=== PATIENT | male | born 1950 | race Two or more races ===

== ENCOUNTER 2019-06-30 15:44 | Inpatient (IN) | payer OTHER ==
--- NOTE | 2019-06-30 15:58 | PDOC ---
Rapid Medical Evaluation Time Seen by Provider: 06/30/19 15:57 Medical Evaluation: Allergies Allergy/AdvReac Type Severity Reaction Status Date / Time No Known Allergies Allergy Verified 06/30/19 15:54 06/30/19 15:57 I have performed a brief in-person evaluation of this patient. The patient presents with a chief complaint of: hx of HTN, IDDM, GERD. c/o abd pain x 3 hours, denies N/V/D, last BM today and was normal PCP Dr. Cordon Pertinent physical exam findings: mild TTP to RLQ I have ordered the following: labs, urine The patient will proceed to the ED for further evaluation. Discharge Disposition - Diagnosis Abdominal pain - Referrals - Patient Instructions - Post Discharge Activity
[2019-06-30 15:59] VITALS: BMI 29.3
[2019-06-30 16:55] LABS: BASO % 0.3 % (0-2.0); EOS % 3.2 % (0-4.5); HEMATOCRIT 45.9 % (35.4-49); HEMOGLOBIN 14.8 GM/dL (11.7-16.9); LYMPH % 36.7 % (8-40); MCH 27.1 pg (25.7-33.7); MCHC 32.3 g/dl (32.0-35.9); MEAN CELL VOLUME 83.8 fl (80-96); MEAN PLT VOLUME 9.9 fl (7.5-11.1); MONO % 12.1 % (3.8-10.2); NEUT % 47.7 % (42.8-82.8); RBC 5.48 M/mm3 (4.00-5.60); RDW 15.9 % (11.9-15.9); WHITE BLOOD COUNT 7.8 K/mm3 (4.0-10.0)
[2019-06-30 17:19] LABS: ALBUMIN 3.8 g/dl (3.4-5.0); BILIRUBIN,TOTAL 0.5 mg/dL (0.2-1); CALCIUM 9.2 mg/dL (8.5-10.1); CREATININE 0.8 mg/dL (0.55-1.3)
[2019-06-30 17:32] LABS: PLATELET COUNT 156 K/MM3 (134-434); PLATELET ESTIMATE ADEQUATE
--- NOTE | 2019-06-30 18:04 | PDOC ---
History of Present Illness - General History Source: Patient Exam Limitations: No Limitations - History of Present Illness Initial Comments: 68 year old male with PMH HTN, NIDDM, diptheria (3 months old; in [place]) presented to ED for bilateral flank pain x5 hours. Pt reported he was sitting when he began to feel this pain. He reported it has been getting progressively worse in intensity, prompting him to come to the ED. He reported the pain is constant, crampy, radiating across his upper abdomen, no alleviating or aggravating factors. He reported after the pain developed he then felt pain with urination and felt his urine was darker. He denied fever, chills, nausea, vomiting, diarrhea, chest pain, shortness of breath, numbness, tingling. ROS General: denied fever, chills, generalized weakness. HEENT: denied sore throat, rhinorrhea, ear pain. Cardiovascular: denied chest pain, palpitations, syncope, diaphoresis. Respiratory: denied shortness of breath, cough, sputum production, hemoptysis. Gastrointestinal: admitted to abdominal pain. denied nausea, vomiting, diarrhea , constipation, blood in stool. Genitourinary: admitted to dysuria, flank pain. denied increased urinary frequency, hematuria, urinary incontinence. Back: denied back pain. Musculoskeletal: denied joint pain, muscle pain, joint swelling. Neurological: denied headache, dizziness, numbness, tingling, weakness. Integumentary: denied rash, laceration, abrasion. Hematologic/Lymphatic: denied bruising or bleeding. PE Constitutional: Well-nourished, Well-developed, appearing stated age. HEENT: head is normocephalic, atraumatic. EOMI. PERRLA. Neck: supple. Full ROM. Cardiovascular: regular heart rhythm. Normal S1 and S2. no murmurs. no pericardial friction rub. Respiratory: clear to auscultation bilaterally. no crackles, rhonchi or wheezing. no stridor. Gastrointestinal: soft, protuberant. tenderness to RUQ, negative murphys. normal bowel sounds. no rebound, guarding, or masses. no rash. Back: positive right sided CVA tenderness. negative left sided CVA tenderness. no rash. Extremities: peripheral pulses intact and equal. no lower extremity edema noted. Neurological: CN 2-12 grossly intact. moves all four extremities. Psych: awake, alert, oriented x3. follows commands. answers questions appropriately. <Nasima De Dios - Last Filed: 06/30/19 22:39> <Saleem Heller - Last Filed: 06/30/19 23:25> - General Chief Complaint: Pain Stated Complaint: R/O UTI/ ABD PAIN Time Seen by Provider: 06/30/19 15:57 Past History - Past Medical History Asthma: Yes CVA: No COPD: No Diabetes: Yes (NIDDM) GI Disorders: Yes (GERD) HTN: Yes - Psycho Social/Smoking Cessation Hx Smoking History: Never smoked Hx Alcohol Use: No Drug/Substance Use Hx: No <Nasima De Dios - Last Filed: 06/30/19 22:39> <Saleem Heller - Last Filed: 06/30/19 23:25> - Past Medical History Allergies/Adverse Reactions: Allergies Allergy/AdvReac Type Severity Reaction Status Date / Time No Known Allergies Allergy Verified 06/30/19 15:54 *Physical Exam - Vital Signs Last Vital Signs Temp Pulse Resp BP Pulse Ox 97.9 F 69 130/101 H 98 06/30/19 15:54 06/30/19 15:54 06/30/19 15:54 06/30/19 15:54 <Nasima De Dios - Last Filed: 06/30/19 22:39> - Vital Signs Last Vital Signs Temp Pulse Resp BP Pulse Ox 97.9 F 88 137/94 98 06/30/19 15:54 06/30/19 21:45 06/30/19 21:45 06/30/19 15:54 <Saleem Heller - Last Filed: 06/30/19 23:25> ED Treatment Course - LABORATORY CBC & Chemistry Diagram: 06/30/19 16:05 06/30/19 16:05 - ADDITIONAL ORDERS Additional order review: Laboratory Results 06/30/19 16:05 Sodium 137 Potassium 4.0 Chloride 102 Carbon Dioxide 29 Anion Gap 6 L BUN 13.0 Creatinine 0.8 Est GFR (CKD-EPI)AfAm 107.13 Est GFR (CKD-EPI)NonAf 92.44 Random Glucose 97 Calcium 9.2 Total Bilirubin 0.5 AST 27 ALT 49 Alkaline Phosphatase 72 Total Protein 8.0 Albumin 3.8 Lipase 114 06/30/19 16:05 RBC 5.48 MCV 83.8 MCHC 32.3 RDW 15.9 MPV 9.9 Neutrophils % 47.7 Lymphocytes % 36.7 Monocytes % 12.1 H Eosinophils % 3.2 Basophils % 0.3 <Nasima De Dios - Last Filed: 06/30/19 22:39> - LABORATORY CBC & Chemistry Diagram: 06/30/19 16:05 06/30/19 16:05 - ADDITIONAL ORDERS Additional order review: Laboratory Results 06/30/19 06/30/19 18:05 16:05 Sodium 137 Potassium 4.0 Chloride 102 Carbon Dioxide 29 Anion Gap 6 L BUN 13.0 Creatinine 0.8 Est GFR (CKD-EPI)AfAm 107.13 Est GFR (CKD-EPI)NonAf 92.44 Random Glucose 97 Calcium 9.2 Total Bilirubin 0.5 AST 27 ALT 49 Alkaline Phosphatase 72 Total Protein 8.0 Albumin 3.8 Lipase 114 Urine Color [place] Urine Appearance Clear Urine pH 5.5 Ur Specific [place] 1.014 Urine Protein 2+ H Urine Glucose (UA) Negative Urine Ketones Negative Urine Blood 3+ H Urine Nitrite Negative Urine Bilirubin Negative Urine Urobilinogen 0.2 Ur Leukocyte Esterase Trace Urine WBC (Auto) 24 Urine RBC (Auto) 132 Urine Casts (Auto) 4 U Epithel Cells (Auto) 6.8 Urine Bacteria (Auto) 3.9 Urine Yeast (Auto) Few 06/30/19 16:05 RBC 5.48 MCV 83.8 MCHC 32.3 RDW 15.9 MPV 9.9 Neutrophils % 47.7 Lymphocytes % 36.7 Monocytes % 12.1 H Eosinophils % 3.2 Basophils % 0.3 - Medications Given in the ED: ED Medications Discontinued Medications Generic Name Dose Route Start Last Admin Trade Name Freq PRN Reason Stop Dose Admin Sodium Chloride 1,000 mls @ 1,000 mls/hr 06/30/19 18:20 06/30/19 20:33 Normal Saline - IV 06/30/19 19:19 1,000 mls/hr ASDIR STA Administration Ketorolac Tromethamine 30 mg 06/30/19 22:30 06/30/19 23:09 Toradol Injection - IVPUSH 06/30/19 22:31 30 mg ONCE ONE Administration Labetalol HCl 20 mg 06/30/19 18:56 06/30/19 19:53 Normodyne Injection - IVPUSH 06/30/19 18:57 20 mg ONCE ONE Administration Morphine Sulfate 2 mg 06/30/19 18:20 06/30/19 20:32 Morphine Injection - IVPUSH 06/30/19 18:21 2 mg ONCE ONE Administration <Arron,Boris - Last Filed: 06/30/19 23:25> Medical Decision Making - Medical Decision Making 68 year old male with above PMH presented to ED for bilateral flank pain associated with dysuria and dark urine. Initial Vital Signs Temp Pulse BP Pulse Ox 97.9 F 69 130/101 H 98 06/30/19 15:54 06/30/19 15:54 06/30/19 15:54 06/30/19 15:54 Afebrile. No tachycardia. Hypertensive. No hypoxia on room air. EKG performed at 2036: rate 70, regular rhythm, normal axis, 1st degree AV block , CT 264, no acute ST changes. Laboratory Last Values WBC 7.8 K/mm3 (4.0-10.0) 06/30/19 16:05 RBC 5.48 M/mm3 (4.00-5.60) 06/30/19 16:05 Hgb 14.8 GM/dL (11.7-16.9) 06/30/19 16:05 Hct 45.9 % (35.4-49) 06/30/19 16:05 MCV 83.8 fl (80-96) 06/30/19 16:05 MCH 27.1 pg (25.7-33.7) 06/30/19 16:05 MCHC 32.3 g/dl (32.0-35.9) 06/30/19 16:05 RDW 15.9 % (11.9-15.9) 06/30/19 16:05 Plt Count 156 K/MM3 (134-434) 06/30/19 16:05 MPV 9.9 fl (7.5-11.1) 06/30/19 16:05 Absolute Neuts (auto) 3.7 K/mm3 (1.5-8.0) 06/30/19 16:05 Neutrophils % 47.7 % (42.8-82.8) 06/30/19 16:05 Lymphocytes % 36.7 % (8-40) 06/30/19 16:05 Monocytes % 12.1 % (3.8-10.2) H 06/30/19 16:05 Eosinophils % 3.2 % (0-4.5) 06/30/19 16:05 Basophils % 0.3 % (0-2.0) 06/30/19 16:05 Nucleated RBC % 0 % (0-0) 06/30/19 16:05 Platelet Estimate Adequate 06/30/19 16:05 Platelet Comment Rare giant plts 06/30/19 16:05 Sodium 137 mmol/L (136-145) 06/30/19 16:05 Potassium 4.0 mmol/L (3.5-5.1) 06/30/19 16:05 Chloride 102 mmol/L (98-107) 06/30/19 16:05 Carbon Dioxide 29 mmol/L (21-32) 06/30/19 16:05 Anion Gap 6 MMOL/L (8-16) L 06/30/19 16:05 BUN 13.0 mg/dL (7-18) 06/30/19 16:05 Creatinine 0.8 mg/dL (0.55-1.3) 06/30/19 16:05 Est GFR (CKD-EPI)AfAm 107.13 06/30/19 16:05 Est GFR (CKD-EPI)NonAf 92.44 06/30/19 16:05 Random Glucose 97 mg/dL (74-106) 06/30/19 16:05 Calcium 9.2 mg/dL (8.5-10.1) 06/30/19 16:05 Total Bilirubin 0.5 mg/dL (0.2-1) 06/30/19 16:05 AST 27 U/L (15-37) 06/30/19 16:05 ALT 49 U/L (13-61) 06/30/19 16:05 Alkaline Phosphatase 72 U/L (45-117) 06/30/19 16:05 Total Protein 8.0 g/dl (6.4-8.2) 06/30/19 16:05 Albumin 3.8 g/dl (3.4-5.0) 06/30/19 16:05 Lipase 114 U/L (73-393) 06/30/19 16:05 No leukocytosis. No anemia. Elevated monocytes. No electrolyte abnormalities. No ARIELA. No transaminitis. Lipase wnl. Medications ordered: Labetolol 20 mg IV once, morphine 2 mg IV once, normal saline bolus 1000 cc once Concern for aortic dissection vs AAA, will lower blood pressure then transport to CT for imaging. 06/30/19 19:38 Vital Signs Temperature 97.9 F 06/30/19 15:54 Pulse Rate 79 06/30/19 19:33 Respiratory Rate Blood Pressure 171/86 H 06/30/19 19:33 O2 Sat by Pulse Oximetry (%) 98 06/30/19 15:54 Increasing systolic HTN Labetalol not given yet 06/30/19 22:31 Urine Test Results Urine Color [place] 06/30/19 18:05 Urine Appearance Clear 06/30/19 18:05 Urine pH 5.5 (5.0-8.0) 06/30/19 18:05 Ur Specific [place] 1.014 (1.010-1.035) 06/30/19 18:05 Urine Protein 2+ (NEGATIVE) H 06/30/19 18:05 Urine Glucose (UA) Negative (NEGATIVE) 06/30/19 18:05 Urine Ketones Negative (NEGATIVE) 06/30/19 18:05 Urine Blood 3+ (NEGATIVE) H 06/30/19 18:05 Urine Nitrite Negative (NEGATIVE) 06/30/19 18:05 Urine Bilirubin Negative (NEGATIVE) 06/30/19 18:05 Ur Leukocyte Esterase Trace (NEGATIVE) 06/30/19 18:05 CT report: Name: [facility] DEPARTMENT OF RADIOLOGY Phys: Nasima De Dios RESIDENT : 1950 Age: 68 Sex: M [facility] Acct: [id number] Loc: [address] Exam Date: 06/30/19 Status: [place] [id number] Unit Number: [id number] EXAM#: TYPE/EXAM: RESULT: [id number] CT/CTA CHEST ABD PEL W/WO CONT CT angiography of the chest, abdomen and pelvis (without and with contrast) Clinical information: bilateral flank pain; history of hypertension; evaluate for dissection, aneurysm, nephrolithiasis Multiplanar imaging of the chest, abdomen and pelvis was performed before and following the intravenous administration of nonionic contrast. Enteric contrast was not administered. No prior CT studies are available at this facility for direct comparison. A 3 mm calculus is seen within the mid aspect of the right ureter with resultant mild hydronephrosis and mild right perirenal soft tissue stranding is noted secondary to acute obstruction. No other definite urinary tract calculus is visualized. Multiple bilateral renal cortical cyst are seen most prominent measuring 16.7 cm. The thoracoabdominal aorta demonstrates no CT evidence of aneurysm, dissection, intramural hematoma or penetrating atherosclerotic ulceration. At least moderate atherosclerotic coronary artery calcifications are visualized. Small bilateral upper lobe opacities are seen probably representing scarring. Several enlarged left inguinal lymph nodes are seen with a 1.3 cm maximum short axis diameter. 1.2 cm left adrenal adenoma. Diffuse hepatic steatosis. The remaining visualized soft tissue structures demonstrate no significant CT pathology. Impression: 3 mm right mid ureteral calculus with resultant mild hydronephrosis. Multiple large bilateral renal cortical cysts. No CT evidence of aortic aneurysm or dissection. At least moderate atherosclerotic coronary calcifications. Nonspecific left inguinal lymphadenopathy. Diffuse hepatic steatosis. 1.2 cm left adrenal adenoma. Biochemical evaluation is suggested. Mild bilateral upper lobe opacities are seen probably representing scarring. Correlate with 3 month follow-up CT. Reported By: Francisco J Lombardi MD 06/30/19 2227 Pt has nephrolithiasis resulting in obstruction. Left adrenal adenoma noted. Left inguinal adenopathy. Fatty liver. Bilateral renal cortical cysts. Medications ordered: Ceftriaxone 1g IV once Labs ordered: Blood cultures x2 Pt to be admitted for obstructed nephrolithiasis. Pending admission. <Nasima De Dios - Last Filed: 06/30/19 22:39> Discharge - Discharge Information Problems reviewed: Yes - Admission Yes <Nasima De Dios - Last Filed: 06/30/19 22:39> - Discharge Information Problems reviewed: Yes - Admission Yes <Saleem Heller - Last Filed: 06/30/19 23:25> - Discharge Information Clinical Impression/Diagnosis: Nephrolithiasis, Hepatic steatosis, Renal cyst UTI (urinary tract infection) Qualifiers: Urinary tract infection type: site unspecified Hematuria presence: with hematuria Qualified Code(s): N39.0 - Urinary tract infection, site not specified ; R31.9 - Hematuria, unspecified Adrenal adenoma Qualifiers: Laterality: unspecified laterality Qualified Code(s): D35.00 - Benign neoplasm of unspecified adrenal gland Condition: Fair - Follow up/Referral Referrals: Joe Cordon MD [Primary Care Provider] - - Patient Discharge Instructions - Post Discharge Activity
[2019-06-30] MEDS ORDERED: morphine CARPU-JECT 4 MG/1 ML DISP.SYRIN IVPUSH ONE (18:20)
[2019-06-30] MEDS ORDERED: SODIUM CHLORIDE 1,000 ML IV STA (18:20)
[2019-06-30] MEDS ORDERED: LABETALOL HCL 5 MG/1 ML (100MG/20 ML VIAL) IVPUSH ONE (18:56)
[2019-06-30] MEDS ORDERED: LABETALOL HCL 5 MG/1 ML (200MG/40ML VIAL) IVPB ONE (19:07)
--- NOTE | 2019-06-30 19:40 | PDOC ---
Documentation entered by Judith Mi SCRIBE, acting as scribe for Saleem Heller MD. Saleem Heller MD: This documentation has been prepared by the Shmuel savage Xhesika, SCRIBE, under my direction and personally reviewed by me in its entirety. I confirm that the documentation accurately reflects all work, treatment, procedures, and medical decision making performed by me. Attending Attestation - Resident Resident Name: Nasima De Dios - ED Attending Attestation I have performed the following: I have examined & evaluated the patient, The case was reviewed & discussed with the resident, I agree w/resident's findings & plan, Exceptions are as noted - HPI HPI: 06/30/19 18:28 The patient is a 68 year old male with a significant PMH of HTN, IDDM, GERD, and diptheria who presents to the emergency department for 5hrs of bilateral flank pain. The patient states his symptoms started while he was sitting down. Pt describes the pain as constant, crampy in nature, radiating to his upper abdomen associated with painful urination and dark color urine. The patient denies chest pain, shortness of breath, headache and dizziness. Denies fever, chills, cough, nausea, vomiting, diarrhea and constipation. Allergies: NKDA PCP: Dr. Cordon - Physicial Exam PE: 06/30/19 19:36 Patient is awake and alert, obese, in mild distress, hypertensive. Normocephalic and atraumatic PERRLA, EOMI No JVD CTA RRR Abdomen is soft, tympanitic, nontender, positive right CVA tenderness to palpation, no organomegaly, no hernias - Medical Decision Making 06/30/19 19:38 Patient is a 68-year-old male who presents with atraumatic bilateral flank pain radiating anteriorly. Patient is noted to be hypertensive on initial evaluation. Differential diagnosis includes nephrolithiasis versus pyelonephritis versus urinary retention versus AAA versus aortic dissection. Will treat elevated blood pressure with parenteral labetalol; will obtain CTA of chest and abdomen to rule out dissection. Will reassess.
[2019-06-30] MEDS ORDERED: MORPHINE SULFATE 2 MG/ML VIAL ONE (20:31)
[2019-06-30 21:01] LABS: EPI CELLS 6.8 /HPF (0-5/HPF); HYALINE CASTS 4 /lpf (0-8); PH,URINE 5.5 (5.0-8.0); URINE APPEARANCE CLEAR; URINE BACTERIA 3.9 /hpf (NEGATIVE); URINE BILIRUBIN NEGATIVE (NEGATIVE); URINE COLOR ORANGE; URINE GLUCOSE (UA) NEGATIVE (NEGATIVE); URINE KETONE NEGATIVE (NEGATIVE); URINE LEUK ESTERASE TRACE (NEGATIVE); URINE NITRITE NEGATIVE (NEGATIVE); URINE PROTEIN 2+ (NEGATIVE); URINE RBC 132 /hpf (0-4); URINE UROBILINOGEN 0.2 mg/dL (0.2-1.0); URINE WBC 24 /hpf (0-5)
[2019-06-30 21:31] LABS: YEAST FEW (NEGATIVE)
[2019-06-30] MEDS ORDERED: KETOROLAC TROMETHAMINE 30 MG/1 ML VIAL IVPUSH ONE (22:30)
[2019-06-30] MEDS ORDERED: TAMSULOSIN HCL 0.4 MG CAP PO ONE (22:30)
[2019-06-30] MEDS ORDERED: CEFTRIAXONE 1 GM in DEXTROSE 5%-WATER - 100 ML IVPB ONE (22:38)
[2019-06-30] MEDS ORDERED: KETOROLAC TROMETHAMINE 30 MG/1 ML VIAL ONE (23:04)
--- NOTE | 2019-06-30 23:25 | PN ---
Teaching Attending Note Name of Resident: Karen Martins ATTENDING PHYSICIAN STATEMENT I saw and evaluated the patient. I reviewed the resident's note and discussed the case with the resident. I agree with the resident's findings and plan as documented. SUBJECTIVE: 68-year-old male with history of hypertension, diabetes mellitus, diphtheria at 4 years old while in [place], presents to ED for bilateral flank pain which started on 06/30/2019 in the evening. Patient sat down when he began to feel sharp pain in his flanks bilaterally. Pain was constant with no clear alleviating or aggravating factors. Denied any dysuria. OBJECTIVE: Last Vital Signs Temp Pulse Resp BP Pulse Ox 97.9 F 88 137/94 98 06/30/19 15:54 06/30/19 21:45 06/30/19 21:45 06/30/19 15:54 Physical exam showed a man in no acute distress, appears comfortable. No CVA tenderness appreciated, soft abdomen. Lungs clear to auscultation bilaterally, normal cardiovascular exam. No pedal edema bilaterally Abnormal Lab Results 06/30/19 06/30/19 06/30/19 16:05 16:05 18:05 Monocytes % 12.1 H Anion Gap 6 L Urine Protein 2+ H Urine Blood 3+ H CT/CTA of chest, abdomen, pelvis with and without contrast reviewed1.2 cm left adrenal adenoma, diffuse hepatic steatosis, 3 mm right mid ureteral calculus with resultant mild hydronephrosis. Multiple large bilateral renal cortical cysts. No CT evidence of aortic aneurysm or dissection, nonspecific left inguinal lymphadenopathy, diffuse hepatic steatosis. ASSESSMENT AND PLAN: #3 mm right mid ureter calculus with resultant mild hydronephrosissymptomatic as patient had significant pain, now is resolved. Patient denied overt dysuria, fevers, chills so doubt legitimate urinary tract infection at this time. Urine culture IV fluid hydration Morphine IV for pain control Urology evaluation PT, PTT, type and screen N.p.o. for possible urological intervention # 1.2 cm left adrenal adenomawould follow-up in endocrinology clinic #Hepatic steatosiswould follow-up in hepatology clinic #Diabetes mellitus A1c NovoLog sliding scale #DVT prophylaxisSCDs
[2019-06-30] MEDS ORDERED: SODIUM CHLORIDE 1,000 ML IV SCH (23:45)
[2019-06-30] MEDS ORDERED: TAMSULOSIN HCL 0.4 MG CAP ONE (23:48)
--- NOTE | 2019-06-30 23:49 | HP ---
CHIEF COMPLAINT: Hematuria PCP: Dr. Cordon HISTORY OF PRESENT ILLNESS: 68M PMH HTN, NIDDM, asthma, HLD, who presents today with hematuria and bilateral flank pain. Patient reports that he has had worsening flank pain over the past few days, with the pain reaching 10/10, worst in the right flank today. The pain is nonradiating. He notes no difficulty urinating, with stream not changing, no change in frequency or hesitancy. He had episodes of hematuria prior to arriving in the ED but he reports no hematuria on last episode of urination. Patient denies any dysuria. He has no abdominal pain, and does not note any change in his abdominal size, except the weight he has put on since he has retired. Patient denies any history of polycystic kidneys, and no prior history of renal stones. Patient has appetite but has not eaten all day, and denies any nausea and vomiting. ER course was notable for: (1) CT scan of Abdomen, pelvis, chest was completed: 3 mm right mid ureteral calculus with resultant mild hydronephrosis. Multiple large bilateral renal cortical cysts. No CT evidence of aortic aneurysm or dissection. At least moderate atherosclerotic coronary calcifications. Nonspecific left inguinal lymphadenopathy. Diffuse hepatic steatosis. 1.2 cm left adrenal adenoma. Biochemical evaluation is suggested. Mild bilateral upper lobe opacities are seen probably representing scarring. Correlate with 3 month follow-up CT. (2) Patient was given morphine 2 mg IV, after which he had 2 episodes of NBNB emesis. (3) Patient was given flomax, toradol, and labetolol Recent Travel: None PAST MEDICAL HISTORY: HTN, NIDDM, Asthma, HLD, Diptheria FAMILY MEDICAL HISTORY: Denies PAST SURGICAL HISTORY: Surgery after diptheria when 3 month old in [place] Social History: Smoking:Denies Alcohol: Socially Drugs: Denies Retired [employer] worker. Lives with at home, is able to complete all ADLs without assistance. Allergies No Known Allergies Allergy (Verified 06/30/19 15:54) HOME MEDICATIONS: REVIEW OF SYSTEMS CONSTITUTIONAL: Absent: fever, chills, diaphoresis, generalized weakness, malaise, loss of appetite, weight change HEENT: Absent: rhinorrhea, nasal congestion, throat pain, throat swelling, difficulty swallowing, mouth swelling, ear pain, eye pain, visual changes CARDIOVASCULAR: Absent: chest pain, syncope, palpitations, irregular heart rate, lightheadedness , peripheral edema RESPIRATORY: Absent: cough, shortness of breath, dyspnea with exertion, orthopnea, wheezing, stridor, hemoptysis GASTROINTESTINAL: Absent: abdominal pain, abdominal distension, nausea, vomiting, diarrhea, constipation, melena, hematochezia GENITOURINARY: Present: hematuria, flank pain Absent: dysuria, frequency, urgency, hesitancy, genital pain MUSCULOSKELETAL: Absent: myalgia, arthralgia, joint swelling, back pain, neck pain SKIN: Absent: rash, itching, pallor HEMATOLOGIC/IMMUNOLOGIC: Absent: easy bleeding, easy bruising, lymphadenopathy, frequent infections ENDOCRINE: Absent: unexplained weight gain, unexplained weight loss, heat intolerance, cold intolerance NEUROLOGIC: Absent: headache, focal weakness or paresthesias, dizziness, unsteady gait, seizure, mental status changes, bladder or bowel incontinence PSYCHIATRIC: Absent: anxiety, depression, suicidal or homicidal ideation, hallucinations. PHYSICAL EXAMINATION Vital Signs - 24 hr 06/30/19 06/30/19 06/30/19 15:54 19:33 21:45 Temperature 97.9 F Pulse Rate 69 Pulse Rate [ 79 88 Apical] Blood Pressure 130/101 H Blood Pressure 171/86 H 137/94 [Left Arm] O2 Sat by Pulse 98 Oximetry (%) GENERAL: Awake, alert, and fully oriented, in no acute distress. HEAD: Normal with no signs of trauma. LUNGS: Breath sounds equal, clear to auscultation bilaterally. No wheezes, and no crackles. No accessory muscle use. HEART: Regular rate and rhythm, normal S1 and S2 without murmur, rub or gallop. ABDOMEN: Distended abdomen,non tympanic, normoactive bowel sounds, nontender to palpation. MUSCULOSKELETAL: Normal range of motion at all joints. No bony deformities or tenderness. B/L CVA tenderness. UPPER EXTREMITIES: 2+ pulses, warm, well-perfused. No cyanosis. No clubbing. No peripheral edema. LOWER EXTREMITIES: 2+ pulses, warm, well-perfused. No calf tenderness. No peripheral edema. NEUROLOGICAL: Cranial nerves II-XII intact. Normal speech. PSYCHIATRIC: Cooperative. Good eye contact. Appropriate mood and affect. SKIN: Warm, dry, normal turgor, no rashes or lesions noted, normal capillary refill. Laboratory Results - last 24 hr 06/30/19 06/30/1906/30/20 16:05 16:05 18:05 WBC 7.8 RBC 5.48 Hgb 14.8 Hct 45.9 MCV 83.8 MCH 27.1 MCHC 32.3 RDW 15.9 Plt Count 156 MPV 9.9 Absolute Neuts (auto) 3.7 Neutrophils % 47.7 Lymphocytes % 36.7 Monocytes % 12.1 H Eosinophils % 3.2 Basophils % 0.3 Nucleated RBC % 0 Platelet Estimate Adequate Platelet Comment Rare giant plts Sodium 137 Potassium 4.0 Chloride 102 Carbon Dioxide 29 Anion Gap 6 L BUN 13.0 Creatinine 0.8 Est GFR (CKD-EPI)AfAm 107.13 Est GFR (CKD-EPI)NonAf 92.44 Random Glucose 97 Calcium 9.2 Total Bilirubin 0.5 AST 27 ALT 49 Alkaline Phosphatase 72 Total Protein 8.0 Albumin 3.8 Lipase 114 Urine Color [place] Urine Appearance Clear Urine pH 5.5 Ur Specific [place] 1.014 Urine Protein 2+ H Urine Glucose (UA) Negative Urine Ketones Negative Urine Blood 3+ H Urine Nitrite Negative Urine Bilirubin Negative Urine Urobilinogen 0.2 Ur Leukocyte Esterase Trace Urine WBC (Auto) 24 Urine RBC (Auto) 132 Urine Casts (Auto) 4 U Epithel Cells (Auto) 6.8 Urine Bacteria (Auto) 3.9 Urine Yeast (Auto) Few ASSESSMENT/PLAN: 68M PMH HTN, NIDDM, asthma, HLD, who presents today with hematuria and bilateral flank pain and found to have renal calculus on CT imaging. 1) Mild hydronephrosis 2/2 renal calculus - Patient presents with new onset hematuria, U/A shows 3+ blood - CT imaging show 3 mm right mid ureteral calculus with resultant mild hydronephrosis and soft tissue stranding. - Denies symptoms of obstruction, still able to urinate and maintains same stream - Tylenolol IV Q6H PRN - Morphine 2 mg IV for pain - Zofran 4 mg IV for nausea - Urology consulted, Dr. Saravia, appreciate recs - Patient kept NPO, PT, PTT, Type& Screen ordered - NS @100 ml/hr 2) UTI -Patient denies dysuria, change in frequency, urgency - Urine bacteria 3, WBC 24 - Given 1 gram ceftriaxone in ED, will continue - F/U Urine culture 3) 1.2 cm left adrenal adenoma - Follow up with endocrine as outpatient 4) CT imaging shows upper lobe opacities - likely scarring. repeat CT in 3 months - Denies any TB historically. - F/U Quantiferon. 5) Hepatic steatosis - AST/ALT, Alk Phos WNL - Denies hx of hepatitis. - F/U Hepatitis panel - Likely DAVILA given hx of occasional alcohol use and no hx of hepatitis. - F/U with outpatient GI/Hepatology. 6) Hx of HTN -Continuing metoprolol and amlodipine - Holding ARB if patient goes to OR - Given labetolol 40 mg in ED due to HTN- SBP 171. Continue to monitor 7) Hx of DMII - Holding home metformin and stigaliptin - BGM ACHS - ISS 8) Hx of HLD - Continue home statin dose 9) Hx of Asthma - Duonebs PRN F: NS @ 100 ml/hr E: Monitor CMP N: NPO DVT: SCDs Dispo: Admitted to med/surg Visit type - Emergency Visit Emergency Visit: Yes ED Registration Date: 06/30/19 Care time: The patient presented to the Emergency Department on the above date and was hospitalized for further evaluation of their emergent condition. - New Patient This patient is new to me today: Yes Date on this admission: 06/30/19 - Critical Care Critical Care patient: No ATTENDING PHYSICIAN STATEMENT I saw and evaluated the patient. I reviewed the resident's note and discussed the case with the resident. I agree with the resident's findings and plan as documented. SUBJECTIVE: OBJECTIVE: ASSESSMENT AND PLAN:
[2019-06-30] MEDS ORDERED: MORPHINE SULFATE 2 MG/ML VIAL IVPUSH PRN (23:51)
[2019-06-30] MEDS ORDERED: ACETAMINOPHEN 1000 MG/100 ML VIAL (NON FORMULARY) IVPB PRN (23:51)
[2019-07-01] MEDS ORDERED: ONDANSETRON 4 MG/2 ML VIAL IVPUSH PRN ×2 (00:35→16:32)
[2019-07-01] MEDS ORDERED: CEFTRIAXONE 1 GM/50 ML BAG ONE (02:57)
[2019-07-01] MEDS ORDERED: PATIENT'S OWN MEDICATION (NON-FORMULARY) (Ranitidine Hcl [Ranitidine Hcl] 300 MG) PO PRN (03:43)
[2019-07-01] MEDS: INSULIN SLIDING SCALE (NOVOLOG) 1 VIAL SQ SCH ×3 (06:44→22:26)
[2019-07-01 07:29] LABS: BASO % 0.2 % (0-2.0); EOS % 0.5 % (0-4.5); HEMATOCRIT 39.9 % (35.4-49); HEMOGLOBIN 13.2 GM/dL (11.7-16.9); LYMPH % 17.1 % (8-40); MEAN CELL VOLUME 81.8 fl (80-96); MEAN PLT VOLUME 9.8 fl (7.5-11.1); MONO % 14.1 % (3.8-10.2); NEUT % 68.1 % (42.8-82.8); PLATELET COUNT 139 K/MM3 (134-434); RBC 4.87 M/mm3 (4.00-5.60); RDW 15.7 % (11.9-15.9); WHITE BLOOD COUNT 8.8 K/mm3 (4.0-10.0)
[2019-07-01 07:39] LABS: INR 1.12 (0.83-1.09); PROTHROMBIN TIME (PATIENT) 13.2 SEC (9.7-13.0)
[2019-07-01 07:42] LABS: ACTIVATED PTT 31.9 SECONDS (25.2-36.5)
[2019-07-01] MEDS ORDERED: TAMSULOSIN HCL 0.4 MG CAP PO SCH (08:30)
[2019-07-01 08:38] LABS: ALBUMIN 3.3 g/dl (3.4-5.0); BILIRUBIN,TOTAL 0.4 mg/dL (0.2-1); BLOOD UREA NITROGEN 17.5 mg/dL (7-18); CALCIUM 8.1 mg/dL (8.5-10.1); CREATININE 1.4 mg/dL (0.55-1.3); MAGNESIUM 1.8 mg/dL (1.8-2.4); PHOSPHOROUS 3.2 mg/dL (2.5-4.9); POTASSIUM 3.8 mmol/L (3.5-5.1); TOT PROT 6.7 g/dl (6.4-8.2)
[2019-07-01] MEDS ORDERED: metoPROLOL SUCCINATE 25 MG TAB.SR.24H (FP) PO SCH (10:00)
[2019-07-01] MEDS ORDERED: amLODIPine BESYLATE 5 MG TABLET (FP) PO SCH (10:00)
[2019-07-01] MEDS ORDERED: FAMOTIDINE 20 MG TABLET PO SCH (10:00)
[2019-07-01] MEDS ORDERED: FLU VACCINE QUAD 60 MCG/0.5 ML (MDV 19-20) IM ONE (10:00)
--- NOTE | 2019-07-01 12:01 | CON.GU ---
Consult Consult Specialty:: Referred by:: Drake Reason for Consultation:: R ureteral calculus - History of Present Illness Chief Complaint: R flank pain History of Present Illness: 68M PMH HTN, NIDDM, asthma, HLD, who presents today with hematuria and bilateral flank pain. Patient reports that he has had worsening flank pain over the past few days, with the pain reaching 10/10, worst in the right flank today. The pain is nonradiating. He notes no difficulty urinating, with stream not changing, no change in frequency or hesitancy. He had episodes of hematuria prior to arriving in the ED but he reports no hematuria on last episode of urination. Patient denies any dysuria. He has no abdominal pain, and does not note any change in his abdominal size, except the weight he has put on since he has retired. Patient denies any history of polycystic kidneys, and no prior history of renal stones. Patient has appetite but has not eaten all day, and denies any nausea and vomiting. cons req. ER course was notable for: (1) CT scan of Abdomen, pelvis, chest was completed: 3 mm right mid ureteral calculus with resultant mild hydronephrosis. Multiple large bilateral renal cortical cysts. No CT evidence of aortic aneurysm or dissection. At least moderate atherosclerotic coronary calcifications. Nonspecific left inguinal lymphadenopathy. Diffuse hepatic steatosis. 1.2 cm left adrenal adenoma. Biochemical evaluation is suggested. Mild bilateral upper lobe opacities are seen probably representing scarring. Correlate with 3 month follow-up CT. (2) Patient was given morphine 2 mg IV, after which he had 2 episodes of NBNB emesis. (3) Patient was given flomax, toradol, and labetolol - History Source History Provided By: Patient, Medical Record Limitations to Obtaining History: No Limitations - Past Medical History Cardio/Vascular: Yes: HTN, Hyperlipdemia Pulmonary: Yes: Asthma Endocrine: Yes: Diabetes Mellitus - Alcohol/Substance Use Hx Alcohol Use: No - Smoking History Smoking history: Never smoked Home Medications - Allergies Allergies/Adverse Reactions: Allergies Allergy/AdvReac Type Severity Reaction Status Date / Time No Known Allergies Allergy Verified 06/30/19 15:54 - Home Medications Home Medications: Ambulatory Orders Amlodipine Besylate 5 mg PO DAILY 06/30/19 Famotidine 20 mg PO DAILY 06/30/19 Fluticasone/Salmeterol [Advair 250-50 Diskus] 1 puff IH Q4H PRN 06/30/19 Irbesartan 150 mg PO DAILY 06/30/19 Metoprolol Succinate 25 mg PO DAILY 06/30/19 Pravastatin Sodium [Pravachol (Nf)] 20 mg PO HS 06/30/19 Ranitidine HCl 300 mg PO DAILY PRN 06/30/19 Sitagliptin Phosphate [Januvia] 100 mg PO DAILY 06/30/19 metFORMIN HCL [Metformin HCl] 500 mg PO BID 06/30/19 Review of Systems - Review of Systems Genitourinary: reports: Flank Pain Physical Exam- Vital Signs: Vital Signs Temperature 98.3 F 07/01/19 09:06 Pulse Rate 79 07/01/19 09:06 Respiratory Rate 18 07/01/19 09:06 Blood Pressure 115/70 07/01/19 09:06 O2 Sat by Pulse Oximetry (%) 96 07/01/19 04:43 Gastrointestinal: Yes: Normal Bowel Sounds, Soft Renal/: Yes: CVA Tenderness - Right Kidneys: Yes: Flank Pain Left, FLank Pain Right Pelvis: Yes: WNL Testicles: Yes: WNL, Descended Scrotum: Yes: WNL Penis: Yes: WNL Musculoskeletal: Yes: WNL Extremities: Yes: WNL Labs: CBC, BMP 07/01/19 06:18 07/01/19 06:18 Imaging - Results Cat Scan: Report Reviewed Problem List - Problems (1) Ureteral calculus Assessment/Plan: tamsulosin, strain urine, cysto R JJ stent insertion, RULL JJ chng after uti resolved Code(s): N20.1 - CALCULUS OF URETER (2) Hydronephrosis concurrent with and due to calculi of kidney and ureter Code(s): N13.2 - HYDRONEPHROSIS WITH RENAL AND URETERAL CALCULOUS OBSTRUCTION (3) Renal cyst Code(s): N28.1 - CYST OF KIDNEY, ACQUIRED (4) UTI (urinary tract infection) Assessment/Plan: U cx, iv abxs Code(s): N39.0 - URINARY TRACT INFECTION, SITE NOT SPECIFIED Qualifiers: Urinary tract infection type: site unspecified Hematuria presence: with hematuria Qualified Code(s): N39.0 - Urinary tract infection, site not specified; R31.9 - Hematuria, unspecified
--- NOTE | 2019-07-01 14:06 | PN ---
Physical Exam: SUBJECTIVE: Patient seen and examined. C/o epiagstric pain and rt cva tenderness. Afebrile. OBJECTIVE: Vital Signs Period Temp Pulse Resp BP Sys/Abrams Pulse Ox Last 24 Hr 97.9 F-98.8 F 69-88 16-18 115-171/70-101 95-98 GENERAL: The patient is awake, alert, and fully oriented, in no acute distress. NECK: supple. LUNGS: Breath sounds equal, clear to auscultation bilaterally, no wheezes, no crackles, no accessory muscle use. HEART: Regular rate and rhythm, S1, S2 without murmur, rub or gallop. ABDOMEN: Soft, ttp midepgiastrium, Rt CVA tenderness noted. EXTREMITIES: 2+ pulses, warm, well-perfused, no edema. Laboratory Results - last 24 hr 06/30/19 06/30/19 06/30/19 16:05 16:05 18:05 WBC 7.8 RBC 5.48 Hgb 14.8 Hct 45.9 MCV 83.8 MCH 27.1 MCHC 32.3 RDW 15.9 Plt Count 156 MPV 9.9 Absolute Neuts (auto) 3.7 Neutrophils % 47.7 Lymphocytes % 36.7 Monocytes % 12.1 H Eosinophils % 3.2 Basophils % 0.3 Nucleated RBC % 0 Platelet Estimate Adequate Platelet Comment Rare giant plts PT with INR INR PTT (Actin FS) Sodium 137 Potassium 4.0 Chloride 102 Carbon Dioxide 29 Anion Gap 6 L BUN 13.0 Creatinine 0.8 Est GFR (CKD-EPI)AfAm 107.13 Est GFR (CKD-EPI)NonAf 92.44 POC Glucometer Random Glucose 97 Hemoglobin A1c % Calcium 9.2 Phosphorus Magnesium Total Bilirubin 0.5 AST 27 ALT 49 Alkaline Phosphatase 72 Total Protein 8.0 Albumin 3.8 Lipase 114 Vitamin B12 Urine Color [place] Urine Appearance Clear Urine pH 5.5 Ur Specific [place] 1.014 Urine Protein 2+ H Urine Glucose (UA) Negative Urine Ketones Negative Urine Blood 3+ H Urine Nitrite Negative Urine Bilirubin Negative Urine Urobilinogen 0.2 Ur Leukocyte Esterase Trace Urine WBC (Auto) 24 Urine RBC (Auto) 132 Urine Casts (Auto) 4 U Epithel Cells (Auto) 6.8 Urine Bacteria (Auto) 3.9 Urine Yeast (Auto) Few Hep C Ab Diagnostic Hepatitis C RNA HCV RNA PCR log copy editor/ml HCV RNA (PCR) IUs/ml HCV RNA PCR w/Genot Rflx Liver Fibrosis Inter Blood Type Antibody Screen 07/01/19 07/01/19 07/01/19 06:18 06:18 06:18 WBC 8.8 RBC 4.87 Hgb 13.2 Hct 39.9 MCV 81.8 MCH 27.0 MCHC 33.0 RDW 15.7 Plt Count 139 MPV 9.8 Absolute Neuts (auto) 6.0 Neutrophils % 68.1 D Lymphocytes % 17.1 D Monocytes % 14.1 H Eosinophils % 0.5 D Basophils % 0.2 Nucleated RBC % 0 Platelet Estimate Platelet Comment PT with INR INR PTT (Actin FS) Sodium Potassium Chloride Carbon Dioxide Anion Gap BUN Creatinine Est GFR (CKD-EPI)AfAm Est GFR (CKD-EPI)NonAf POC Glucometer Random Glucose Hemoglobin A1c % 7.2 H Calcium Phosphorus Magnesium Total Bilirubin AST ALT Alkaline Phosphatase Total Protein Albumin Lipase Vitamin B12 Urine Color Urine Appearance Urine pH Ur Specific [place] Urine Protein Urine Glucose (UA) Urine Ketones Urine Blood Urine Nitrite Urine Bilirubin Urine Urobilinogen Ur Leukocyte Esterase Urine WBC (Auto) Urine RBC (Auto) Urine Casts (Auto) U Epithel Cells (Auto) Urine Bacteria (Auto) Urine Yeast (Auto) Hep C Ab Diagnostic Hepatitis C RNA HCV RNA PCR log copy editor/ml HCV RNA (PCR) IUs/ml HCV RNA PCR w/Genot Rflx Liver Fibrosis [facility] Blood Type O POSITIVE Antibody Screen Negative 07/01/19 07/01/19 07/01/19 06:18 06:18 06:19 WBC RBC Hgb Hct MCV MCH MCHC RDW Plt Count MPV Absolute Neuts (auto) Neutrophils % Lymphocytes % Monocytes % Eosinophils % Basophils % Nucleated RBC % Platelet Estimate Platelet Comment PT with INR 13.20 H INR 1.12 H PTT (Actin FS) 31.9 Sodium 140 Potassium 3.8 Chloride 106 Carbon Dioxide 24 Anion Gap 10 BUN 17.5 Creatinine 1.4 H Est GFR (CKD-EPI)AfAm 59.83 Est GFR (CKD-EPI)NonAf 51.62 POC Glucometer 174 Random Glucose 179 H Hemoglobin A1c % Calcium 8.1 L Phosphorus 3.2 Magnesium 1.8 Total Bilirubin 0.4 AST 24 ALT 42 Alkaline Phosphatase 58 Total Protein 6.7 Albumin 3.3 L Lipase Vitamin B12 659 Urine Color Urine Appearance Urine pH Ur Specific [place] Urine Protein Urine Glucose (UA) Urine Ketones Urine Blood Urine Nitrite Urine Bilirubin Urine Urobilinogen Ur Leukocyte Esterase Urine WBC (Auto) Urine RBC (Auto) Urine Casts (Auto) U Epithel Cells (Auto) Urine Bacteria (Auto) Urine Yeast (Auto) Hep C Ab Diagnostic Hepatitis C RNA HCV RNA PCR log copy editor/ml HCV RNA (PCR) IUs/ml HCV RNA PCR w/Genot Rflx Liver Fibrosis Interp Blood Type Antibody Screen 07/01/19 07/01/19 08:50 11:20 WBC RBC Hgb Hct MCV MCH MCHC RDW Plt Count MPV Absolute Neuts (auto) Neutrophils % Lymphocytes % Monocytes % Eosinophils % Basophils % Nucleated RBC % Platelet Estimate Platelet Comment PT with INR INR PTT (Actin FS) Sodium Potassium Chloride Carbon Dioxide Anion Gap BUN Creatinine Est GFR (CKD-EPI)AfAm Est GFR (CKD-EPI)NonAf POC Glucometer 124 Random Glucose Hemoglobin A1c % Calcium Phosphorus Magnesium Total Bilirubin AST ALT Alkaline Phosphatase Total Protein Albumin Lipase Vitamin B12 Urine Color Urine Appearance Urine pH Ur Specific [place] Urine Protein Urine Glucose (UA) Urine Ketones Urine Blood Urine Nitrite Urine Bilirubin Urine Urobilinogen Ur Leukocyte Esterase Urine WBC (Auto) Urine RBC (Auto) Urine Casts (Auto) U Epithel Cells (Auto) Urine Bacteria (Auto) Urine Yeast (Auto) Hep C Ab Diagnostic Cancelled Hepatitis C RNA Cancelled HCV RNA PCR log copy editor/ml Cancelled HCV RNA (PCR) IUs/ml Cancelled HCV RNA PCR w/Genot Rflx Cancelled Liver Fibrosis Interp Cancelled Blood Type Antibody Screen Active Medications Generic Name Dose Route Start Last Admin Trade Name Freq PRN Reason Stop Dose Admin Acetaminophen 1,000 mg 06/30/19 23:51 Ofirmev Injection - IVPB 07/01/19 23:51 Q6H PRN PAIN LEVEL 4 - 6 Amlodipine Besylate 5 mg 07/01/19 10:00 07/01/19 10:04 Norvasc - PO 5 mg DAILY LELAND Administration Atorvastatin Calcium 10 mg 07/01/19 22:00 Lipitor - PO HS LELAND Famotidine 20 mg 07/01/19 10:00 07/01/19 10:04 Pepcid - PO 20 mg DAILY LELAND Administration Sodium Chloride 1,000 mls @ 100 mls/hr 06/30/19 23:45 07/01/19 00:00 Normal Saline - IV 100 mls/hr ASDIR LELAND Administration Insulin Aspart 1 vial 07/01/19 07:00 07/01/19 11:31 Novolog Vial Sliding Scale - SQ Not Given ACHS [facility] Protocol Metoprolol Succinate 25 mg 07/01/19 10:00 07/01/19 10:04 Toprol Xl - PO 25 mg DAILY LELAND Administration Morphine Sulfate 2 mg 06/30/19 23:51 Morphine Sulfate IVPUSH Q6H PRN PAIN LEVEL 7 - 10 Non-Formulary Medication 1 puff 07/01/19 03:43 Fluticasone/Salmeterol [Advair 250-50 Diskus] IH Q4H PRN SHORT OF BREATH/WHEEZING Ondansetron HCl 4 mg 07/01/19 00:35 Zofran Injection IVPUSH Q6H PRN NAUSEA Tamsulosin HCl 0.4 mg 07/01/19 08:30 07/01/19 08:56 Flomax - PO 0.4 mg DAILY@0830 LELAND Administration ASSESSMENT/PLAN: 68M PMH HTN, NIDDM, asthma, HLD, who presents today with hematuria and bilateral flank pain and found to have renal calculus on CT imaging. 1) Mild hydronephrosis 2/2 renal calculus - Patient presents with new onset hematuria, U/A shows 3+ blood - CT imaging show 3 mm right mid ureteral calculus with resultant mild hydronephrosis and soft tissue stranding. - Denies symptoms of obstruction - Tylenol IV Q6H PRN - Morphine 2 mg IV for pain, avoid if making him nauseous - Zofran 4 mg IV for nausea - Urology consulted, Dr. Saravia will do a cysto with Rt JJ stent insertion, with removal of JJ onc UTI resolves. ESWL is contraindicated in Acute UTI. - Patient kept NPO, PT, PTT, Type& Screen ordered - NS @100 ml/hr 2) ? UTI -Patient denies dysuria, change in frequency, urgency - Urine bacteria 3, WBC 24, trace leuk est - Given 1 gram ceftriaxone in ED, will discontinue and monitor given lack of urinary symptoms or wbc, fever. - F/U Urine culture to assess need for abx 3) 1.2 cm left adrenal adenoma - Follow up with endocrine as outpatient 4) CT imaging shows upper lobe opacities - likely scarring. repeat CT in 3 months - Denies any TB historically. - F/U Quantiferon. 5) NAFLD - AST/ALT, Alk Phos WNL - Denies hx of hepatitis. - Likely DAVILA given hx of occasional alcohol use and no hx of hepatitis. - RUQ US- showing fatty infiltration of liver - F/U with outpatient GI/Hepatology. - Vitamin E potential benefit for NAFLD 6) Hx of HTN -Continuing metoprolol and amlodipine - Holding ARB if patient goes to OR - Given labetolol 40 mg in ED due to HTN- SBP 171. Continue to monitor 7) Hx of DMII - Holding home metformin and stigaliptin - BGM ACHS - ISS 8) Hx of HLD - Continue home statin dose 9) Hx of Asthma - Duonebs PRN F: NS @ 100 ml/hr E: Monitor CMP N: NPO DVT: SCDs Dispo: Admitted to med/surg Visit type - Emergency Visit Emergency Visit: Yes ED Registration Date: 06/30/19 Care time: The patient presented to the Emergency Department on the above date and was hospitalized for further evaluation of their emergent condition. - New Patient This patient is new to me today: Yes Date on this admission: 07/01/19 - Critical Care Critical Care patient: No - Discharge Referral Referred to [facility] No ATTENDING PHYSICIAN STATEMENT I saw and evaluated the patient. I reviewed the resident's note and discussed the case with the resident. I agree with the resident's findings and plan as documented. SUBJECTIVE: OBJECTIVE: ASSESSMENT AND PLAN:
--- NOTE | 2019-07-01 14:14 | EKG ---
Test Reason : Blood Pressure : / mmHG Vent. Rate : 070 BPM Atrial Rate : 070 BPM P-R Int : 264 ms QRS Dur : 096 ms QT Int : 398 ms P-R-T Axes : 058 023 056 degrees QTc Int : 429 ms SINUS RHYTHM WITH 1ST DEGREE A-V BLOCK NONSPECIFIC ST ABNORMALITY ABNORMAL ECG NO PREVIOUS ECGS AVAILABLE Confirmed by EFRAÍN SUAREZ MD ([id number]) on 07/01/2019 2:14:34 PM Referred By: Confirmed By:EFRAÍN SUAREZ MD
--- NOTE | 2019-07-01 15:00 | OP ---
Operative Note - Note: Operative Date: 07/01/19 Pre-Operative Diagnosis: R ureteral calculus, R hydronephrosis, large renal cysts Operation: cystoscopy and R JJ stent insertion Findings: R ureteral calculus, R hydronephrosis, renal cysts Post-Operative Diagnosis: Same as Pre-op Surgeon: Chauncey Saravia Anesthesiologist/[employer] SALESPERSON: Cindy Pretty Anesthesia: General Estimated Blood Loss (mls): 0 Drains & Tubes with Location: 6 fr 24 cm R JJ stent Operative Report Dictated: Yes
[2019-07-01] MEDS ORDERED: PROPOFOL 20 ML ONE ×2 (15:04→15:37)
[2019-07-01] MEDS ORDERED: LIDOCAINE HCL/PF 2% SDV 5ML VIAL ONE (15:04)
[2019-07-01] MEDS ORDERED: MIDAZOLAM HCL 2 MG/2 ML SINGLE DOSE VIAL ONE (15:05)
[2019-07-01] MEDS ORDERED: LACTATED RINGERS SOLUTION 1,000 ML IV SCH ×2 (16:00→16:32)
--- NOTE | 2019-07-01 16:08 | PN ---
Teaching Attending Note Name of Resident: Abram Coppola ATTENDING PHYSICIAN STATEMENT I saw and evaluated the patient. I reviewed the resident's note and discussed the case with the resident. I agree with the resident's findings and plan as documented. Seen and examined; please see resident note for further historical information. I personally verified all fonscea historical information and exam findings. Personally interpreted all imaging and diagnostics and reviewed appropriate consults. I reviewed all labs and vital signs as per resident note and EMR as documented. I agree with the above assessment and plan unless supplemented by myself in the following. Patient being taken to the operating room for treatment of the right ureteral calculus/right hydronephrosis. Likely stenting. Pain is controlled. 10 item review of systems completed and is negative aside from as discussed in the subjective data in my own/the resident documentation. VS, labs, imaging reviewed NAD, AAO, resting comfortably in bed. RRR s1/2 no mgr Normal muscle tone, moves all 5 extremities with normal apparent strength Neck is supple, trachea midline, no marisa LN Lungs CTAB with sym expansion NT ND +BS no marisa organomegaly CN2-12 wnl; no FND NC AT EOMI PERRLA Normal mood, appropriate behavior, euthymic affect No skin breakdown or rashes noted Assessment and plan: Patient presents with right-sided hydronephrosis with ureteral calculus, heading to the OR for procedure. We will continue IV fluids and pain control, monitor his sugars, and disposition will be pending urology recommendations. He has no fever or white count and there is no signs of clinical infection. We will therefore monitor him closely and cover if indicated but withhold antibiotics at this juncture, following up urine culture. Will be with problem list as per resident
--- NOTE | 2019-07-01 16:15 | OP ---
DATE OF OPERATION: 07/01/2019 PREOPERATIVE DIAGNOSES: Right ureteral calculus, right hydronephrosis, urinary tract infection, bilateral renal cysts. POSTOPERATIVE DIAGNOSES: Right ureteral calculus, right hydronephrosis, urinary tract infection, bilateral renal cysts. PROCEDURE: Cystoscopy, right double-J stent insertion. SURGEON: Chauncey Anderson MD CATHETERIZATION LABORATORY TECHNICIAN: None. ANESTHESIA: General via laryngeal mask. ANESTHESIOLOGIST: CAROL Restrepo SPECIMENS: None. CULTURES: None. DRAINS: A 6-Greenlandic, 24-cm, right double-J stent. ESTIMATED BLOOD LOSS: None. COMPLICATIONS: None. DESCRIPTION OF PROCEDURE: Patient brought in the operating room, placed on the operating table in supine position. After the administration of general anesthesia via laryngeal mask, intravenous antibiotics had been administered on the floor. The patient was placed in the dorsal lithotomy position. Genitals and perineum were prepped and draped in usual sterile manner. A 22-Greenlandic cystoscope was inserted into the bladder under direct vision. The anterior urethra was normal. The prostatic urethra was normal. The bladder was entered, and urine was evacuated. A 30-degree telescope was inserted, and cystoscopy was performed. This demonstrated no foreign bodies, tumors, stones, or inflammation. Both ureteral orifices were in their usual location with clear efflux bilaterally. Now, a 0.038 guidewire was now inserted into the right ureteral orifice and advanced to the level of the right renal pelvis under fluoroscopic and direct visual guidance. Dual-lumen catheter was inserted. Retrograde pyelogram was done and demonstrated bifid collecting system, right mid-ureteral calculus, mild right hydronephrosis. The guidewire was left coiled in the renal pelvis. Then, the dual-lumen catheter was removed. Now, a 6-Greenlandic, 24-cm, right double-J stent was inserted over the guidewire under direct visual and fluoroscopic guidance, leaving 1 coil in the renal pelvis and 1 coil in the bladder. The bladder was emptied. Cystoscope removed. He tolerated the procedure well, transferred to recovery in stable condition. He will be followed up to schedule ureteroscopic laser lithotripsy, double-J stent change, and then, he should have an evaluation for his large renal cysts. CHAUNCEY ANDERSON M.D. [id number]
[2019-07-01] MEDS ORDERED: MORPHINE SULFATE 2 MG/ML VIAL IVPUSH PRN (16:32)
[2019-07-01] MEDS ORDERED: SODIUM CHLORIDE 1,000 ML IV SCH (16:32)
[2019-07-01] MEDS ORDERED: ACETAMINOPHEN 1000 MG/100 ML VIAL (NON FORMULARY) IVPB PRN (16:32)
[2019-07-01] MEDS ORDERED: CEFTRIAXONE 1 GM in DEXTROSE 5%-WATER - 50 ML IVPB SCH (20:00)
[2019-07-01] MEDS ORDERED: ATORVASTATIN CA 10 MG TABLET (FP) PO SCH ×2 (22:00)
[2019-07-02] MEDS: INSULIN SLIDING SCALE (NOVOLOG) 1 VIAL SQ SCH ×2 (06:01→12:15)
[2019-07-02] MEDS ORDERED: ONDANSETRON 4 MG TABLET PO PRN (07:03)
[2019-07-02] MEDS ORDERED: TAMSULOSIN HCL 0.4 MG CAP PO SCH (08:30)
[2019-07-02 09:48] LABS: BLOOD UREA NITROGEN 14.3 mg/dL (7-18); CALCIUM 8.7 mg/dL (8.5-10.1); CREATININE 0.9 mg/dL (0.55-1.3); POTASSIUM 3.7 mmol/L (3.5-5.1)
[2019-07-02] MEDS ORDERED: FAMOTIDINE 20 MG TABLET PO SCH (10:00)
[2019-07-02] MEDS ORDERED: metoPROLOL SUCCINATE 25 MG TAB.SR.24H (FP) PO SCH (10:00)
[2019-07-02] MEDS ORDERED: amLODIPine BESYLATE 5 MG TABLET (FP) PO SCH (10:00)
--- NOTE | 2019-07-02 13:50 | DS ---
Physical Exam: SUBJECTIVE: Patient seen and examined. No acute events overnight. Pt denies any pain or other complaints. OBJECTIVE: Vital Signs Period Temp Pulse Resp BP Sys/Abrams Pulse Ox Last 24 Hr 97.9 F-99.9 F 67-85 12-20 102-160/67-81 94-97 PHYSICAL EXAM GENERAL: The patient is awake, alert, and fully oriented, in no acute distress. LUNGS: Breath sounds equal, clear to auscultation bilaterally, no wheezes, no crackles, no accessory muscle use. HEART: Regular rate and rhythm, S1, S2 without murmur, rub or gallop. ABDOMEN: Soft, no longer having tender abdomen, minimal CVA tenderness. EXTREMITIES: 2+ pulses, warm, well-perfused, no edema. LABS Laboratory Results - last 24 hr 07/01/19 07/01/19 07/01/19 06:18 08:50 17:43 Sodium Potassium Chloride Carbon Dioxide Anion Gap BUN Creatinine Est GFR (CKD-EPI)AfAm Est GFR (CKD-EPI)NonAf POC Glucometer 158 Random Glucose Calcium Hep A IgM Ab Confirm Negative Hep Bs Antigen Negative Hep B Core IgM Ab Negative Hep C Ab Diagnostic <0.1 Hepatitis C Ab (EIA) <0.1 07/01/19 07/02/19 07/02/19 22:25 05:42 08:10 Sodium 138 Potassium 3.7 Chloride 103 Carbon Dioxide 29 Anion Gap 6 L BUN 14.3 Creatinine 0.9 Est GFR (CKD-EPI)AfAm 102.07 Est GFR (CKD-EPI)NonAf 88.07 POC Glucometer 213 137 Random Glucose 161 H Calcium 8.7 Hep A IgM Ab Confirm Hep Bs Antigen Hep B Core IgM Ab Hep C Ab Diagnostic Hepatitis C Ab (EIA) 07/02/19 11:24 Sodium Potassium Chloride Carbon Dioxide Anion Gap BUN Creatinine Est GFR (CKD-EPI)AfAm Est GFR (CKD-EPI)NonAf POC Glucometer 196 Random Glucose Calcium Hep A IgM Ab Confirm Hep Bs Antigen Hep B Core IgM Ab Hep C Ab Diagnostic Hepatitis C Ab (EIA) HOSPITAL COURSE: Date of Admission:06/30/19 CT scan of Abdomen, pelvis, chest was completed: 3 mm right mid ureteral calculus with resultant mild hydronephrosis. Multiple large bilateral renal cortical cysts. No CT evidence of aortic aneurysm or dissection. At least moderate atherosclerotic coronary calcifications. Nonspecific left inguinal lymphadenopathy. Diffuse hepatic steatosis. 1.2 cm left adrenal adenoma. Biochemical evaluation is suggested. Mild bilateral upper lobe opacities are seen probably representing scarring. Correlate with 3 month follow-up CT. U/A shows 3+ blood Pt is a 68M PMH HTN, NIDDM, asthma, HLD, who was admitted for hematuria and rt sided CVA tenderness, found to have renal calculus and rt sided hydronephrosis on ultrasound/CT imaging. Pt was seen by Dr. SARAVIA who placed a JJ stent and started pt on flomax to help pass the stone. Pt is expected to follow up with uro to have JJ removed in 1 week. Pt asymptomatic and uro was okay with discharge with close follow up. Pt also found to have b/l renal cysts and will follow up with nephro (Dr. Cline) regarding this. He also has left adrenal adenoma warranting follow up with endocrine as o/p. He will follow up with pulm for his rpt CT in 3 mths for upper lobe opacities. He will follow up with his primary as well. He was told to come back to the ER if he has any worsening of his current symptoms. Date of Discharge: 07/02/19 Minutes to complete discharge: 35 Discharge Summary Problems reviewed: Yes Reason For Visit: URINARY TRACT INFECTION, CALCULUS OF KIDNEY Current Active Problems Adrenal adenoma (Chronic) Hepatic steatosis (Chronic) Renal cyst (Chronic) Condition: Improved - Instructions Diet, Activity, Other Instructions: You were seen in the hospital for complaints of blood in the urine and flank pain. Imaging showed that you had a kidney stone as well as kidney cysts. You were seen by a urologist and had a stent placed in your ureter to allow passage of your kidney stone. During your hospital stay, your symptoms improved. You are now stable for discharge. Medications Please START taking Flomax 0.4mg by mouth once daily for your stone to pass. Follow up with urology to see if you should continue this once your stone passes and if you are feeling dizzy or lightheaded with this medication please stop it and tell your urologist (Dr. Saravia). Please continue taking the rest of your home medications as directed. Follow Up Please follow up with your primary care physician, within 1 week. Please follow up with your urologist, Dr. Saravia, within 1 week. You will need your stent removed in one week. Please follow up with your die try out worker, Dr. Jessica Valdez, within 1 week for evaluation of kidney cysts found on imaging. Less urgent follow ups to mention to your primary care doctor at your next visit : Please follow up with pulmonology (Dr. Ace) for your lung opacity (cloudiness ) for repeat imaging. Please follow up with endocrinology (Dr. polanco) for your adrenal gland that showed a small growth (left adrenal adenoma). If you have worsening hematuria, abdominal pain, fever/chills, nausea/vomiting, or other associated symptoms, please proceed to your nearest emergency room immediately. Referrals: Joe Cordon MD [Primary Care Provider] - Francisco J Ace MD [Staff Physician] - Chauncey Saravia MD [Staff Physician] - 1 Week Jessica Valdez MD [Staff Physician] - 1 Week Dickson Polanco MD [Staff Physician] - 1 Week Disposition: HOME - Home Medications Comprehensive Discharge Medication List: Ambulatory Orders Amlodipine Besylate 5 mg PO DAILY 06/30/19 Famotidine 20 mg PO DAILY 06/30/19 Fluticasone/Salmeterol [Advair 250-50 Diskus] 1 puff IH Q4H PRN 06/30/19 Irbesartan 150 mg PO DAILY 06/30/19 Metoprolol Succinate 25 mg PO DAILY 06/30/19 Pravastatin Sodium [Pravachol -] 20 mg PO HS 06/30/19 Ranitidine HCl 300 mg PO DAILY PRN 06/30/19 Sitagliptin Phosphate [Januvia] 100 mg PO DAILY 06/30/19 metFORMIN HCL [Metformin HCl] 500 mg PO BID 06/30/19 Tamsulosin HCl [Flomax -] 0.4 mg PO DAILY@0830 #30 cap.er.24h 07/02/19 This patient is new to me today: No Emergency Visit: Yes ED Registration Date: 06/30/19 Care time: The patient presented to the Emergency Department on the above date and was hospitalized for further evaluation of their emergent condition. Critical Care patient: No - Discharge Referral Referred to [facility] No ATTENDING PHYSICIAN STATEMENT I saw and evaluated the patient. I reviewed the resident's note and discussed the case with the resident. I agree with the resident's findings and plan as documented. SUBJECTIVE: OBJECTIVE: ASSESSMENT AND PLAN:
[2019-07-02 15:28] VITALS: BP 122/74; PULSE 88; TEMP 99.7
--- NOTE | 2019-07-02 16:05 | PN ---
Teaching Attending Note Name of Resident: Abram Coppola ATTENDING PHYSICIAN STATEMENT I saw and evaluated the patient. I reviewed the resident's note and discussed the case with the resident. I agree with the resident's findings and plan as documented. Seen and examined; please see resident note for further historical information. I personally verified all fonseca historical information and exam findings. Personally interpreted all imaging and diagnostics and reviewed appropriate consults. I reviewed all labs and vital signs as per resident note and EMR as documented. I agree with the above assessment and plan unless supplemented by myself in the following. Residents discussed the case with Dr. Miller the patient is stable to go home for interval urological follow-up. Stent removal next week, no signs of infection. Afebrile overnight; DC order written 2PM 10 item review of systems completed and is negative aside from as discussed in the subjective data in my own/the resident documentation. VS, labs, imaging reviewed NAD, AAO, resting comfortably in bed. RRR s1/2 no mgr Normal muscle tone, moves all 5 extremities with normal apparent strength Neck is supple, trachea midline, no marisa LN Lungs CTAB with sym expansion NT ND +BS no marisa organomegaly CN2-12 wnl; no FND NC AT EOMI PERRLA Normal mood, appropriate behavior, euthymic affect No skin breakdown or rashes noted Laboratory Tests 06/30/19 06/30/19 06/30/19 16:05 16:05 18:05 WBC 7.8 RBC 5.48 Hgb 14.8 Hct 45.9 MCV 83.8 MCH 27.1 MCHC 32.3 RDW 15.9 Plt Count 156 MPV 9.9 Absolute Neuts (auto) 3.7 Neutrophils % 47.7 Lymphocytes % 36.7 Monocytes % 12.1 H Eosinophils % 3.2 Basophils % 0.3 Nucleated RBC % 0 Platelet Estimate Adequate Platelet Comment Rare giant plts PT with INR INR PTT (Actin FS) Sodium 137 Potassium 4.0 Chloride 102 Carbon Dioxide 29 Anion Gap 6 L BUN 13.0 Creatinine 0.8 Est GFR (CKD-EPI)AfAm 107.13 Est GFR (CKD-EPI)NonAf 92.44 POC Glucometer Random Glucose 97 Hemoglobin A1c % Calcium 9.2 Phosphorus Magnesium Total Bilirubin 0.5 AST 27 ALT 49 Alkaline Phosphatase 72 Total Protein 8.0 Albumin 3.8 Lipase 114 Vitamin B12 Urine Color [place] Urine Appearance Clear Urine pH 5.5 Ur Specific [place] 1.014 Urine Protein 2+ H Urine Glucose (UA) Negative Urine Ketones Negative Urine Blood 3+ H Urine Nitrite Negative Urine Bilirubin Negative Urine Urobilinogen 0.2 Ur Leukocyte Esterase Trace Urine WBC (Auto) 24 Urine RBC (Auto) 132 Urine Casts (Auto) 4 U Epithel Cells (Auto) 6.8 Urine Bacteria (Auto) 3.9 Urine Yeast (Auto) Few Hep A IgM Ab Confirm Hep Bs Antigen Hep B Core IgM Ab Hep C Ab Diagnostic Hepatitis C Ab (EIA) Hepatitis C RNA HCV RNA PCR log copy center associate/ml HCV RNA (PCR) IUs/ml HCV RNA PCR w/Genot Rflx Liver Fibrosis Interp Blood Type Antibody Screen 07/01/19 07/01/19 07/01/19 06:18 06:18 06:18 WBC 8.8 RBC 4.87 Hgb 13.2 Hct 39.9 MCV 81.8 MCH 27.0 MCHC 33.0 RDW 15.7 Plt Count 139 MPV 9.8 Absolute Neuts (auto) 6.0 Neutrophils % 68.1 D Lymphocytes % 17.1 D Monocytes % 14.1 H Eosinophils % 0.5 D Basophils % 0.2 Nucleated RBC % 0 Platelet Estimate Platelet Comment PT with INR INR PTT (Actin FS) Sodium Potassium Chloride Carbon Dioxide Anion Gap BUN Creatinine Est GFR (CKD-EPI)AfAm Est GFR (CKD-EPI)NonAf POC Glucometer Random Glucose Hemoglobin A1c % 7.2 H Calcium Phosphorus Magnesium Total Bilirubin AST ALT Alkaline Phosphatase Total Protein Albumin Lipase Vitamin B12 Urine Color Urine Appearance Urine pH Ur Specific [place] Urine Protein Urine Glucose (UA) Urine Ketones Urine Blood Urine Nitrite Urine Bilirubin Urine Urobilinogen Ur Leukocyte Esterase Urine WBC (Auto) Urine RBC (Auto) Urine Casts (Auto) U Epithel Cells (Auto) Urine Bacteria (Auto) Urine Yeast (Auto) Hep A IgM Ab Confirm Hep Bs Antigen Hep B Core IgM Ab Hep C Ab Diagnostic Hepatitis C Ab (EIA) Hepatitis C RNA HCV RNA PCR log copy center associate/ml HCV RNA (PCR) IUs/ml HCV RNA PCR w/Genot Rflx Liver Fibrosis Interp Blood Type O POSITIVE Antibody Screen Negative 07/01/19 07/01/19 07/01/19 06:18 06:18 06:18 WBC RBC Hgb Hct MCV MCH MCHC RDW Plt Count MPV Absolute Neuts (auto) Neutrophils % Lymphocytes % Monocytes % Eosinophils % Basophils % Nucleated RBC % Platelet Estimate Platelet Comment PT with INR 13.20 H INR 1.12 H PTT (Actin FS) 31.9 Sodium 140 Potassium 3.8 Chloride 106 Carbon Dioxide 24 Anion Gap 10 BUN 17.5 Creatinine 1.4 H Est GFR (CKD-EPI)AfAm 59.83 Est GFR (CKD-EPI)NonAf 51.62 POC Glucometer Random Glucose 179 H Hemoglobin A1c % Calcium 8.1 L Phosphorus 3.2 Magnesium 1.8 Total Bilirubin 0.4 AST 24 ALT 42 Alkaline Phosphatase 58 Total Protein 6.7 Albumin 3.3 L Lipase Vitamin B12 659 Urine Color Urine Appearance Urine pH Ur Specific [place] Urine Protein Urine Glucose (UA) Urine Ketones Urine Blood Urine Nitrite Urine Bilirubin Urine Urobilinogen Ur Leukocyte Esterase Urine WBC (Auto) Urine RBC (Auto) Urine Casts (Auto) U Epithel Cells (Auto) Urine Bacteria (Auto) Urine Yeast (Auto) Hep A IgM Ab Confirm Negative Hep Bs Antigen Negative Hep B Core IgM Ab Negative Hep C Ab Diagnostic Hepatitis C Ab (EIA) <0.1 Hepatitis C RNA HCV RNA PCR log copy center associate/ml HCV RNA (PCR) IUs/ml HCV RNA PCR w/Genot Rflx Liver Fibrosis Interp Blood Type Antibody Screen 07/01/19 07/01/19 07/01/19 06:19 08:50 08:50 WBC RBC Hgb Hct MCV MCH MCHC RDW Plt Count MPV Absolute Neuts (auto) Neutrophils % Lymphocytes % Monocytes % Eosinophils % Basophils % Nucleated RBC % Platelet Estimate Platelet Comment PT with INR INR PTT (Actin FS) Sodium Potassium Chloride Carbon Dioxide Anion Gap BUN Creatinine Est GFR (CKD-EPI)AfAm Est GFR (CKD-EPI)NonAf POC Glucometer 174 Random Glucose Hemoglobin A1c % Calcium Phosphorus Magnesium Total Bilirubin AST ALT Alkaline Phosphatase Total Protein Albumin Lipase Vitamin B12 Urine Color Urine Appearance Urine pH Ur Specific [place] Urine Protein Urine Glucose (UA) Urine Ketones Urine Blood Urine Nitrite Urine Bilirubin Urine Urobilinogen Ur Leukocyte Esterase Urine WBC (Auto) Urine RBC (Auto) Urine Casts (Auto) U Epithel Cells (Auto) Urine Bacteria (Auto) Urine Yeast (Auto) Hep A IgM Ab Confirm Hep Bs Antigen Hep B Core IgM Ab Hep C Ab Diagnostic Cancelled <0.1 Hepatitis C Ab (EIA) Hepatitis C RNA Cancelled HCV RNA PCR log copy center associate/ml Cancelled HCV RNA (PCR) IUs/ml Cancelled HCV RNA PCR w/Genot Rflx Cancelled Liver Fibrosis Interp Cancelled Blood Type Antibody Screen 07/01/19 07/01/19 07/01/19 11:20 17:43 22:25 WBC RBC Hgb Hct MCV MCH MCHC RDW Plt Count MPV Absolute Neuts (auto) Neutrophils % Lymphocytes % Monocytes % Eosinophils % Basophils % Nucleated RBC % Platelet Estimate Platelet Comment PT with INR INR PTT (Actin FS) Sodium Potassium Chloride Carbon Dioxide Anion Gap BUN Creatinine Est GFR (CKD-EPI)AfAm Est GFR (CKD-EPI)NonAf POC Glucometer 124 158 213 Random Glucose Hemoglobin A1c % Calcium Phosphorus Magnesium Total Bilirubin AST ALT Alkaline Phosphatase Total Protein Albumin Lipase Vitamin B12 Urine Color Urine Appearance Urine pH Ur Specific [place] Urine Protein Urine Glucose (UA) Urine Ketones Urine Blood Urine Nitrite Urine Bilirubin Urine Urobilinogen Ur Leukocyte Esterase Urine WBC (Auto) Urine RBC (Auto) Urine Casts (Auto) U Epithel Cells (Auto) Urine Bacteria (Auto) Urine Yeast (Auto) Hep A IgM Ab Confirm Hep Bs Antigen Hep B Core IgM Ab Hep C Ab Diagnostic Hepatitis C Ab (EIA) Hepatitis C RNA HCV RNA PCR log copy center associate/ml HCV RNA (PCR) IUs/ml HCV RNA PCR w/Genot Rflx Liver Fibrosis Interp Blood Type Antibody Screen 07/02/19 07/02/19 07/02/19 05:42 08:10 11:24 WBC RBC Hgb Hct MCV MCH MCHC RDW Plt Count MPV Absolute Neuts (auto) Neutrophils % Lymphocytes % Monocytes % Eosinophils % Basophils % Nucleated RBC % Platelet Estimate Platelet Comment PT with INR INR PTT (Actin FS) Sodium 138 Potassium 3.7 Chloride 103 Carbon Dioxide 29 Anion Gap 6 L BUN 14.3 Creatinine 0.9 Est GFR (CKD-EPI)AfAm 102.07 Est GFR (CKD-EPI)NonAf 88.07 POC Glucometer 137 196 Random Glucose 161 H Hemoglobin A1c % Calcium 8.7 Phosphorus Magnesium Total Bilirubin AST ALT Alkaline Phosphatase Total Protein Albumin Lipase Vitamin B12 Urine Color Urine Appearance Urine pH Ur Specific [place] Urine Protein Urine Glucose (UA) Urine Ketones Urine Blood Urine Nitrite Urine Bilirubin Urine Urobilinogen Ur Leukocyte Esterase Urine WBC (Auto) Urine RBC (Auto) Urine Casts (Auto) U Epithel Cells (Auto) Urine Bacteria (Auto) Urine Yeast (Auto) Hep A IgM Ab Confirm Hep Bs Antigen Hep B Core IgM Ab Hep C Ab Diagnostic Hepatitis C Ab (EIA) Hepatitis C RNA HCV RNA PCR log copy center associate/ml HCV RNA (PCR) IUs/ml HCV RNA PCR w/Genot Rflx Liver Fibrosis Interp Blood Type Antibody Screen Microbiology 07/01/19 03:00 Urine - Urine Clean Catch Urine Culture - Final NO GROWTH OBTAINED Patient presented for obstructive uropathy secondary to ureteral stone with associated hydronephrosis. S/P stent with Dr. Saravia; removal next week and FU with PCP 3-5 days. No fevers through time of DC and with no spike in WBC and negative urine culture so this is less likely fever; will be informed what symptoms to monitor for regarding return to hospital. He has no dysuria, no subjective complaints this AM and DC plan was cleared with n specialists. Also given requisition to FU with nephrology for renal cysts.
[2019-07-03 21:11] LABS: HEP B CORE AB, TOT Negative (Negative)
== END 2019-07-02 16:14 | disposition home or self-care (01) | DRG 661 ==
LOC: JER 15:44 → JERBED 23:26 → J7W 07-01 04:09 → J5S 07-01 17:19
PROVIDERS: ADMIT Internal Medicine; ATTEND Internal Medicine
PROC: 0T768DZ Dilation of Right Ureter with Intraluminal Device, Via Natural or Artificial Opening Endoscopic (ICD-10-PCS; principal; 2019-07-01 14:00)
DX: N13.6 Pyonephrosis (principal); I10 Essential (primary) hypertension; E11.9 Type 2 diabetes mellitus without complications; D35.00 Benign neoplasm of unspecified adrenal gland; N28.1 Cyst of kidney, acquired; K76.0 Fatty (change of) liver, not elsewhere classified; J45.909 Unspecified asthma, uncomplicated; E78.5 Hyperlipidemia, unspecified
CPT/HCPCS: 36415; 71275-TC; 74174-TC; 76000-TC-FY; 80048; 80053; 80074; 81003; 82607; 82962; 83036; 83690; 83735; 84100; 85025; 85610; 85730; 86480; 86704; 86706; 86707; 86708; 86709; 86803; 86850; 86900; 86901; 87040; 87086; 87340; 87522; 93005; 93010; 94760; 99285-25; J0131; J7030; Q9967

== ENCOUNTER 2019-12-24 04:29 | Day surgery (SDC) | payer OTHER ==
[2019-12-22 18:07] VITALS: BMI 29.0
[2019-12-24 06:32] LABS: EPI CELLS 14 /uL (0-25.1); HYALINE CASTS 1 /uL (0-3.1); URINE APPEARANCE CLEAR; URINE BACTERIA 90 /uL (0-1359); URINE BILIRUBIN NEGATIVE (NEGATIVE); URINE COLOR YELLOW; URINE GLUCOSE (UA) NEGATIVE (NEGATIVE); URINE KETONE NEGATIVE (NEGATIVE); URINE LEUK ESTERASE 2+ (NEGATIVE); URINE NITRITE NEGATIVE (NEGATIVE); URINE PROTEIN 2+ (NEGATIVE); URINE RBC 2187 /uL (0-23.9); URINE UROBILINOGEN 0.2 mg/dL (0.2-1.0); URINE WBC 74 /uL (0-25.8)
[2019-12-24] MEDS ORDERED: MIDAZOLAM HCL 2 MG/2 ML SINGLE DOSE VIAL ONE (07:49)
[2019-12-24] MEDS ORDERED: PROPOFOL 20 ML ONE (07:49)
[2019-12-24] MEDS ORDERED: LIDOCAINE HCL/PF 2% SDV 5ML VIAL ONE (07:50)
[2019-12-24] MEDS ORDERED: PROMETHAZINE HCL 25 MG/1 ML VIAL IVPUSH PRN (07:54)
[2019-12-24] MEDS ORDERED: oxyCODONE HCL 5 MG TABLET PO PRN (07:54)
[2019-12-24] MEDS ORDERED: ONDANSETRON 4 MG/2 ML VIAL IVPUSH PRN (07:54)
[2019-12-24] MEDS ORDERED: LACTATED RINGERS SOLUTION 1,000 ML IV SCH (08:00)
--- NOTE | 2019-12-24 08:01 | HP ---
History & Physical Update - History History: No Change - Physical Physical: No Change - Assessment Assessment: No Change - Plan Plan: No Change
--- NOTE | 2019-12-24 08:03 | OP ---
Operative Note - Note: Operative Date: 12/24/19 Pre-Operative Diagnosis: R ureteral calculus Operation: R ureteroscopic laser lithotripsy and JJ stent change Findings: R ureteral calculus Post-Operative Diagnosis: Same as Pre-op Surgeon: Chauncey Saravia Anesthesiologist/LOCKSTITCH WAISTLINE JOINER: Fernando Zhao Anesthesia: General Specimens Removed: R JJ stent Estimated Blood Loss (mls): 0 Drains & Tubes with Location: 6 fr 24 cm R JJ stent Operative Report Dictated: Yes
[2019-12-24] MEDS ORDERED: ceFAZolin SODIUM 1 GM VIAL ONE (08:08)
[2019-12-24] MEDS ORDERED: ceFAZolin SODIUM 1 GM VIAL IVPB ONE (08:10)
[2019-12-24] MEDS ORDERED: DEXAMETHASONE SOD PHOSPHATE 4 MG/1 ML VIAL ONE (08:10)
[2019-12-24] MEDS ORDERED: KETOROLAC TROMETHAMINE 30 MG/1 ML VIAL ONE (08:12)
--- NOTE | 2019-12-24 11:29 | OP ---
DATE OF OPERATION: 12/24/2019 PREOPERATIVE DIAGNOSIS: Right ureteral calculus. POSTOPERATIVE DIAGNOSIS: Right ureteral calculus. PROCEDURE: Right ureteroscopic laser lithotripsy and double-J stent change. SURGEON: Chauncey Saravia MD CAR SEALER: None. ANESTHESIA: General via laryngeal mask. ANESTHESIOLOGIST: Fernando Zhao MD SPECIMENS: Right double-J stent. CULTURES: None. DRAINS: A 6-[place] African 24-cm right double-J stent. ESTIMATED BLOOD LOSS: None. COMPLICATIONS: None. DESCRIPTION OF PROCEDURE: Patient was brought in the operating room, placed on the operating table in supine position. After the administration of general anesthesia via laryngeal mask, intravenous antibiotics were administered, sequential compression devices were placed. After a timeout was performed, the patient was placed in the dorsal lithotomy position. Genitals, perineum were prepped and draped in the usual sterile manner. A 22-South African cystoscope was inserted into the bladder under direct vision. Anterior and posterior urethra was normal. prostatic urethra demonstrated early BPH. The bladder was entered, thoroughly inspected. There were no tumors, stones. There was some inflammation related to the double-J stent. The right double-J stent was grasped at the tip, brought to the urethral meatus, cannulated with a 0.038 guidewire, advanced to the level of the right renal pelvis under fluoroscopic guidance. Double-J stent was removed, sent to pathology as specimen. The cystoscope was removed and the bladder was emptied. Now the semirigid ureteroscope was inserted into the right ureteral orifice alongside the guidewire up to the midureter where a stone was visualized. The stone was then pushed up proximally and the scope was exchanged for a flexible ureteroscope. Laser lithotripsy was done until the stone was fragmented into small pieces. Now the ureteroscope was removed. The entire course of the ureter was inspected. No additional stones were seen. Retrograde pyelogram was done, demonstrated mild right hydronephrosis, no extravasation of contrast, no filling defects. The cystoscope was backloaded, and a 6-[place] 24-cm right double-J stent was inserted over the guidewire under direct visual and fluoroscopic guidance, leaving 1 coil in the renal pelvis, 1 coil in the bladder. Bladder was emptied, cystoscope removed. He tolerated the procedure well, transferred to the recovery room in stable condition. He will be followed up in the office tomorrow for stent removal. Ivory [id number]
[2019-12-24] MEDS ORDERED: oxyCODONE HCL 5 MG TABLET ONE (12:40)
[2019-12-24 13:51] VITALS: BP 133/88; PULSE 61; TEMP 97.6
--- NOTE | 2019-12-27 11:09 | PATH ---
Surgical Pathology Report Patient Name: MISA KAY Med. Rec. #: [id number] /Age/Gender: 1950 (Age: 69) / M Account: [id number] Location: [facility] Taken: 12/24/2019 Received: 12/24/2019 Reported: 12/27/2019 Physicians: Chauncey Saravia M.D. Specimen(s) Received REMOVED STENT Clinical History Calculus of ureter Final Diagnosis REMOVED STENT, STENT PLACEMENT: CONSISTENT WITH URETERAL STENT. MACROSCOPIC DIAGNOSIS. Electronically Signed Anabelle Bassett M.D. Gross Description Received fresh labeled "removed stent," is a 36 cm in length yellow-green, coiled portion of tubing, consistent with a ureteral stent. No soft tissue is present. No sections are submitted, gross only. [facility]
== END 2019-12-24 13:53 | disposition home or self-care (01) ==
LOC: JASU-SURG 04:29
PROVIDERS: ATTEND Urology
PROC: 0TF68ZZ Fragmentation in Right Ureter, Via Natural or Artificial Opening Endoscopic (ICD-10-PCS; principal; 2019-12-24 08:00)
PROC: 0T768DZ Dilation of Right Ureter with Intraluminal Device, Via Natural or Artificial Opening Endoscopic (ICD-10-PCS; 2019-12-24 08:00)
DX: N20.1 Calculus of ureter (principal)
CPT/HCPCS: 81003; 82962; 88300-TC; 94760

== ENCOUNTER 2020-08-28 11:18 | Observation (INO) | payer OTHER ==
[2020-08-28 12:23] LABS: BASO % 0.6 % (0-2.0); EOS % 2.5 % (0-4.5); HEMATOCRIT 22.8 % (35.4-49); LYMPH % 26.3 % (8-40); MEAN CELL VOLUME 64.9 fl (80-96); MEAN PLT VOLUME 9.2 fl (7.5-11.1); MONO % 12.8 % (3.8-10.2); NEUT % 57.8 % (42.8-82.8); PLATELET COUNT 180 K/MM3 (134-434); RDW 18.1 % (11.9-15.9); RETICULOCYTES 1.96 % (0.5-1.5); WHITE BLOOD COUNT 7.2 K/mm3 (4.0-10.0)
[2020-08-28 12:26] LABS: MCH 19.5 pg (25.7-33.7)
[2020-08-28 12:28] LABS: HEMOGLOBIN 6.8 GM/dL (11.7-16.9)
[2020-08-28 12:32] LABS: INR 1.05 (0.83-1.09); PROTHROMBIN TIME (PATIENT) 12.7 SEC (9.7-13.0)
[2020-08-28 12:34] LABS: ACTIVATED PTT 29.4 SECONDS (25.2-36.5)
[2020-08-28 12:42] LABS: ALBUMIN 3.7 g/dl (3.4-5.0); BLOOD UREA NITROGEN 14.3 mg/dL (7-18)
[2020-08-28 12:44] LABS: CREATININE 0.7 mg/dL (0.55-1.3)
[2020-08-28 12:46] LABS: BILIRUBIN,TOTAL 0.3 mg/dL (0.2-1); TOT PROT 7.2 g/dl (6.4-8.2)
[2020-08-28] MEDS ORDERED: SODIUM CHLORIDE 1,000 ML IV SCH (13:45)
[2020-08-28] MEDS ORDERED: CEFTRIAXONE 1 GM in DEXTROSE 5%-WATER - 50 ML IVPB SCH (13:45)
[2020-08-28] MEDS: INSULIN SLIDING SCALE (NOVOLOG) 1 VIAL SQ SCH ×2 (17:56→22:48)
[2020-08-28 19:12] VITALS: BMI 27.9
[2020-08-28 21:23] LABS: BASO % 0.5 % (0-2.0); EOS % 2.5 % (0-4.5); HEMATOCRIT 24.5 % (35.4-49); HEMOGLOBIN 7.4 GM/dL (11.7-16.9); LYMPH % 26.5 % (8-40); MCH 20.8 pg (25.7-33.7); MCHC 30.3 g/dl (32.0-35.9); MEAN CELL VOLUME 68.7 fl (80-96); MEAN PLT VOLUME 10.1 fl (7.5-11.1); MONO % 10.9 % (3.8-10.2); NEUT % 59.6 % (42.8-82.8); PLATELET COUNT 180 K/MM3 (134-434); RBC 3.57 M/mm3 (4.00-5.60); WHITE BLOOD COUNT 7.3 K/mm3 (4.0-10.0)
[2020-08-29 02:03] LABS: BASO % 1.2 % (0-2.0); EOS % 3.2 % (0-4.5); HEMATOCRIT 26.2 % (35.4-49); HEMOGLOBIN 8.2 GM/dL (11.7-16.9); LYMPH % 26.8 % (8-40); MCH 22.3 pg (25.7-33.7); MCHC 31.4 g/dl (32.0-35.9); MEAN CELL VOLUME 71.1 fl (80-96); MEAN PLT VOLUME 9.1 fl (7.5-11.1); MONO % 12.5 % (3.8-10.2); NEUT % 56.3 % (42.8-82.8); PLATELET COUNT 145 K/MM3 (134-434); RBC 3.69 M/mm3 (4.00-5.60); RDW 23.2 % (11.9-15.9); WHITE BLOOD COUNT 7.6 K/mm3 (4.0-10.0)
[2020-08-29] MEDS: INSULIN SLIDING SCALE (NOVOLOG) 1 VIAL SQ SCH ×2 (06:03→11:15)
[2020-08-29 08:43] LABS: HEMOGLOBIN 8.6 GM/dL (11.7-16.9); MCH 22.4 pg (25.7-33.7); MCHC 31.9 g/dl (32.0-35.9); MEAN CELL VOLUME 70.1 fl (80-96); MEAN PLT VOLUME 9.1 fl (7.5-11.1); PLATELET COUNT 149 K/MM3 (134-434); RBC 3.85 M/mm3 (4.00-5.60); RDW 23.1 % (11.9-15.9)
[2020-08-29 08:59] LABS: ALBUMIN 3.4 g/dl (3.4-5.0); BLOOD UREA NITROGEN 8.7 mg/dL (7-18); MAGNESIUM 2.1 mg/dL (1.8-2.4)
[2020-08-29 09:02] LABS: CREATININE 0.7 mg/dL (0.55-1.3)
[2020-08-29 09:03] LABS: PHOSPHOROUS 3.1 mg/dL (2.5-4.9)
[2020-08-29 09:04] LABS: BILIRUBIN,TOTAL 1.1 mg/dL (0.2-1); TOT PROT 6.6 g/dl (6.4-8.2)
[2020-08-29] MEDS ORDERED: PATIENT'S OWN MEDICATION (NON-FORMULARY) (Mirabegron [Myrbetriq] 25 MG Tab.Er.24h) PO SCH (10:00)
[2020-08-29] MEDS ORDERED: metoPROLOL SUCCINATE 25 MG TAB.SR.24H (FP) PO SCH (10:00)
[2020-08-29] MEDS ORDERED: FAMOTIDINE 20 MG TABLET PO SCH (10:00)
[2020-08-29] MEDS ORDERED: MAGNESIUM OXIDE 400 MG TABLET (FP) PO SCH (10:00)
[2020-08-29] MEDS ORDERED: ASCORBIC ACID 500 MG TABLET (FP) PO SCH (10:00)
[2020-08-29] MEDS ORDERED: IRON SUCROSE INJECTION 200 MG in SODIUM CHLORIDE 90 ML IVPB ONE (11:00)
[2020-08-29 15:57] VITALS: BP 150/84; PULSE 73; TEMP 98.3
[2020-08-29] MEDS ORDERED: ATORVASTATIN CA 20 MG TABLET (FP) PO SCH (22:00)
[2020-08-29] MEDS ORDERED: POLYETHYLENE GLYCOL 3350 119 GM BTL PO SCH (22:00)
[2020-08-30] MEDS ORDERED: TAMSULOSIN HCL 0.4 MG CAP PO SCH (08:30)
== END 2020-08-29 15:27 | disposition home or self-care (01) ==
LOC: JER 11:18 → JERBED 11:49 → J5S 15:47
PROVIDERS: ADMIT Internal Medicine
PROC: 3E033GC Introduction of Other Therapeutic Substance into Peripheral Vein, Percutaneous Approach (ICD-10-PCS; principal; 2020-08-28)
PROC: 3E0337Z Introduction of Electrolytic and Water Balance Substance into Peripheral Vein, Percutaneous Approach (ICD-10-PCS; 2020-08-28)
PROC: 30283B1 Transfusion of Nonautologous 4-Factor Prothrombin Complex Concentrate into Vein, Percutaneous Approach (ICD-10-PCS; 2020-08-28)
DX: K62.5 Hemorrhage of anus and rectum (principal); D50.0 Iron deficiency anemia secondary to blood loss (chronic); I25.10 Atherosclerotic heart disease of native coronary artery without angina pectoris; I11.9 Hypertensive heart disease without heart failure; Z95.1 Presence of aortocoronary bypass graft; E11.9 Type 2 diabetes mellitus without complications; J45.909 Unspecified asthma, uncomplicated; E78.5 Hyperlipidemia, unspecified; D64.9 Anemia, unspecified; K64.8 Other hemorrhoids; K59.00 Constipation, unspecified; I44.0 Atrioventricular block, first degree; I25.2 Old myocardial infarction
CPT/HCPCS: 36430; 96361; 96365; P9021; 36415; 36511; 80053; 82272; 82728; 82962; 83540; 83550; 83615; 83735; 84100; 84443; 85025; 85027; 85045; 85610; 85730; 86850; 86900; 86901; 86922; 93005; 93010; 99285-25; C9803; G0378; J1756; P9016; P9058; U0003; U0005

== ENCOUNTER 2022-01-29 05:22 | Day surgery (SDC) | payer OTHER ==
[2022-01-28 14:18] VITALS: BMI 29.0
[2022-01-29] MEDS ORDERED: MIDAZOLAM HCL 2 MG/2 ML SINGLE DOSE VIAL ONE (11:25)
[2022-01-29] MEDS ORDERED: ceFAZolin SODIUM 1 GM VIAL ONE (11:28)
[2022-01-29] MEDS ORDERED: CEFAZOLIN 1 GM in DEXTROSE 5%-WATER - 50 ML IVPB ONE (11:40)
[2022-01-29] MEDS ORDERED: MIDAZOLAM HCL 2 MG/2 ML SINGLE DOSE VIAL IVPUSH ONE (12:08)
[2022-01-29] MEDS ORDERED: SODIUM CHLORIDE 500 ML IV ONE (13:15)
[2022-01-29 13:27] VITALS: RESP 18
[2022-01-29 14:52] VITALS: BP 136/83; PULSE 64; TEMP 98.2
== END 2022-01-29 14:40 | disposition home or self-care (01) ==
LOC: JRADIR 05:22
PROVIDERS: ATTEND Urology
PROC: 0T903ZX Drainage of Right Kidney, Percutaneous Approach, Diagnostic (ICD-10-PCS; principal; 2022-01-29)
DX: N28.1 Cyst of kidney, acquired (principal); Z53.8 Procedure and treatment not carried out for other reasons
CPT/HCPCS: 50390; C9803-CS; U0003; U0005

== ENCOUNTER 2022-01-31 05:43 | Day surgery (SDC) | payer OTHER ==
[2022-01-30 10:45] VITALS: BMI 29.0
[2022-01-31] MEDS ORDERED: MIDAZOLAM HCL 2 MG/2 ML SINGLE DOSE VIAL ONE (10:21)
[2022-01-31] MEDS ORDERED: ceFAZolin SODIUM 1 GM VIAL ONE (10:25)
[2022-01-31] MEDS ORDERED: CEFAZOLIN 1 GM in SODIUM CHLORIDE 50 ML IVPB ONE (10:45)
[2022-01-31] MEDS ORDERED: SODIUM CHLORIDE 500 ML IV ONE (10:45)
[2022-01-31] MEDS ORDERED: WATER FOR INJ STERILE NR ONE (11:00)
[2022-01-31] MEDS ORDERED: SODIUM CHLORIDE NR ONE (11:00)
[2022-01-31] MEDS: MIDAZOLAM HCL 2 MG/2 ML SINGLE DOSE VIAL IVPB SCH ×2 (11:40→11:58)
[2022-01-31 15:13] VITALS: RESP 18
[2022-01-31 15:40] VITALS: BP 108/72; PULSE 83; TEMP 98
[2022-01-31 19:11] LABS: BF WBC & OTHER NUCLEATED CELLS 242 /mm3
[2022-01-31 19:41] LABS: BODY FLUID MONOCYTE 3 %; BODYL FLD EOSINOPHIL 6 %
== END 2022-01-31 15:50 | disposition home or self-care (01) ==
LOC: JRADIR 05:43
PROVIDERS: ATTEND Urology
PROC: 0T903ZX Drainage of Right Kidney, Percutaneous Approach, Diagnostic (ICD-10-PCS; principal; 2022-01-31)
DX: N28.1 Cyst of kidney, acquired (principal)
CPT/HCPCS: 36415; 49185; 50390; 82042; 82150; 82945; 83615; 83986; 84157; 84478; 87070; 87075; 87102; 87116; 87205; 87206; 87210; 88108; 88173